=== PATIENT | female | born 1945 | race American Indian/Alaskan Native ===

== ENCOUNTER 2017-08-27 12:38 | Emergency (ER) | payer MEDICARE ==
[2017-08-27 13:01] VITALS: BP 97/62
--- NOTE | 2017-08-27 14:46 | ED PDOC ---
Arrival/HPI - General Chief Complaint: Back Pain Time Seen by Provider: 08/27/17 14:10 Historian: Patient - History of Present Illness Narrative History of Present Illness (Text): 08/27/17 14:49 A 72 year old female, whose past medical history includes diabetes, presents to the emergency department complaining of ongoing abdominal pain radiating from lower back pain for 4-5 weeks. Patient reports she was admitted to the hospital for the same complaint 2-3 weeks ago and states having CT and Ultrasound imaging performed. Patient is uncertain why she was admitted. She describes her pain as "hot charcoal" sensation, and notes pain changes location upon movement. States when laying on her left-side, she feels slight relief and later experiences worsening back pain. Patient mentions also experiencing appetite changes, only consuming liquids and unable to eat food. Patient denies any other complaints at this time. Also, patient mentions she was told by her PMD or oncologist she has pancreatic cancer, however she is uncertain. PMD: Dr. Mihir Hutton Oncologist: Dr. Karen Wade Time/Duration: < month (4-5 weeks) Past Medical History - Provider Review Nursing Documentation Reviewed: Yes - Infectious Disease Hx of Infectious Diseases: None - Reproductive Menopause: Yes Family/Social History - Physician Review Nursing Documentation Reviewed: Yes Family/Social History: No Known Family HX Allergies/Home Meds Allergies/Adverse Reactions: Allergies atorvastatin [From Lipitor] Allergy (Verified 08/27/17 14:59) RASH atorvastatin calcium [From Lipitor] Allergy (Verified 08/11/17 19:11) LEG WEAKNESS celecoxib [From Celebrex] Allergy (Verified 08/27/17 14:59) RASH ibuprofen [From Motrin] Allergy (Verified 08/27/17 14:59) RASH rosiglitazone maleate [From Avandia] Allergy (Verified 08/11/17 19:11) DIZZINESS simvastatin [From Zocor] Allergy (Verified 08/27/17 14:59) RASH sitagliptin [From Januvia] Allergy (Verified 08/27/17 14:59) RASH sitagliptin phosphate [From Januvia] Allergy (Verified 08/11/17 19:11) DIZZINESS licorice Adverse Reaction (Severe, Verified 08/11/17 19:11) GI UPSET advata Allergy (Uncoded 08/27/17 14:59) RASH januvia Allergy (Uncoded 08/27/17 14:59) RASH 7-UP Adverse Reaction (Severe, Uncoded 08/11/17 19:11) VOMITING COCONUT Adverse Reaction (Severe, Uncoded 08/11/17 19:11) GI UPSET Home Medications: Home Meds Medication Instructions Recorded Confirmed Potassium Gluconate 99 mg PO DAILY 10/22/11 08/24/17 Calcium Carbonate [Caltrate] 600 mg PO DAILY 12/17/15 08/24/17 Garlic [Garlic Oil] 1,000 mg PO DAILY 12/17/15 08/24/17 Multivitamin with Minerals 1 tab PO DAILY 12/17/15 08/24/17 [Bee-Zee] Insulin Aspart [Novolog Flexpen] 12 units SQ TID 08/11/17 08/24/17 Insulin Degludec [Tresiba 25 unit SQ HS 08/11/17 08/24/17 Flextouch U-200] Triamterene/Hctz 37.5 mg PO DAILY 08/12/17 08/24/17 Cod Liver Oil 1 each PO DAILY 08/24/17 08/24/17 Cu/Se/Vit A/Vit C/Vit E/Zinc 1 tab PO DAILY 08/24/17 08/24/17 [Ocuvite] Fentanyl [Duragesic Patch] 1 patch TD Q3D 08/24/17 08/24/17 Oxycodone HCl [Oxycontin] 10 mg PO Q6H PRN 08/24/17 08/24/17 Valsartan [Diovan] 160 mg PO DAILY 08/24/17 08/24/17 Potassium Gluconate [Potassium] 595 mg PO DAILY 08/27/17 08/27/17 Triamterene/Hydrochlorothiazid 1 cap PO DAILY 08/27/17 08/27/17 [Triamterene-Hydrochlorothiazide 25 mg-37.5 mg] Valsartan [Diovan] 160 mg PO DAILY 08/27/17 08/27/17 Review of Systems - Physician Review All systems were reviewed & negative as marked: Yes - Review of Systems Gastrointestinal: Abdominal Pain (radiating from lower back pain), Appetite Changes (only consuming liquids, unable to eat food) Musculoskeletal: Back Pain (lower region) Physical Exam - Physical Exam Narrative Physical Exam (Text): Gen: VS reviewed, alert, well developed, well nourished, nontoxic, mild distress. ENT: normal pharynx. Eye: EOMI, PERRL. Neck: no JVD, supple, no adenopathy. CV: regular rate, regular rhythm, no rubs, no murmur, no gallops, S1, S2, pulses equal and strong. Pulm: no distress, clear to auscultation, no wheeze, no rhonchi, breath sounds equal, no rales. Abd: soft, nontender, no guarding, no rebound, no rigidity, normal bowel sounds. Ext: no edema. Skin: good color, no rash, no cyanosis. Psych: responds appropriately to questions, normal affect. Neuro: oriented x 3, CN2-12 intact grossly, motor intact, sensation intact. Vital Signs Reviewed: Yes Vital Signs Temp Pulse Resp BP Pulse Ox 08/27/17 15:18 98.1 F 94 H 19 98 08/27/17 12:51 98.2 F 98 H 20 97/62 L 96 Temperature: Afebrile Blood Pressure: Normal Pulse: Regular Respiratory Rate: Normal Appearance: Positive for: Well-Appearing, Non-Toxic, Comfortable Pain Distress: None Mental Status: Positive for: Alert and Oriented X 3 Medical Decision Making ED Course and Treatment: 08/27/17 14:51 Impression: 72 year old female with ongoing abdominal pain radiating from lower back pain. No acute findings on physical examination. Plan: -- Reassess and disposition Progress Notes: 08/27/17 15:[address] wade but no return phone call. hien is apparently schedule to have a port placed today, same day surgery and should not have been disposition to the Emergency department. - Scribe Statement The provider has reviewed the documentation as recorded by the Patrica Loza Provider Scribe Attestation: All medical record entries made by the Patrica were at my direction and personally dictated by me. I have reviewed the chart and agree that the record accurately reflects my personal performance of the history, physical exam, medical decision making, and the department course for this patient. I have also personally directed, reviewed, and agree with the discharge instructions and disposition. Disposition/Present on Arrival - Present on Arrival Any Indicators Present on Arrival: No History of DVT/PE: No History of Uncontrolled Diabetes: No Urinary Catheter: No History of Decub. Ulcer: No History Surgical Site Infection Following: None - Disposition Have Diagnosis and Disposition been Completed?: Yes Diagnosis: Chronic pain Disposition: HOME/ ROUTINE Disposition Time: 18:12 Condition: GOOD Discharge Instructions (ExitCare): Chronic Pain (DC) Print Language: SLOVAK Forms: femeninas (Kazakh)
[2017-08-27 15:19] VITALS: PULSE 94; RESP 19; TEMP 98.1; O2SAT 98
== END 2017-08-27 15:19 | disposition home or self-care (01) ==
LOC: ED 12:38
DX: M54.5 Low back pain (principal); G89.29 Other chronic pain; E11.9 Type 2 diabetes mellitus without complications